=== PATIENT | female | born 1990 | race Caucasian/White ===

== ENCOUNTER 2025-02-02 13:26 | Emergency (ER) | payer MEDICAID, SELFPAY ==
[2025-02-02 13:27] VITALS: BP 147/90; PULSE 91; RESP 19; TEMP 36.7; O2SAT 99; BMI 29.7
[2025-02-02 13:33] VITALS: BP 147/90; PULSE 81; RESP 19; TEMP 36.7; O2SAT 99; BMI 28.8
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
[2025-02-02] MEDS: Ibuprofen 600 MG Tablet PO (14:40)
[2025-02-02 14:42] VITALS: BP 145/99; PULSE 79; RESP 16; TEMP 36.7; O2SAT 99
== END 2025-02-02 14:54 | disposition home or self-care (01) ==
PROVIDERS: Emergency Provider Emergency Medicine; Visit Provider Emergency Medicine
DX: S09.90XA Unspecified injury of head, initial encounter (principal); S16.1XXA Strain of muscle, fascia and tendon at neck level, initial encounter; V43.52XA Car driver injured in collision with other type car in traffic accident, initial encounter; Z87.891 Personal history of nicotine dependence
CPT/HCPCS: 99282